=== PATIENT | male | born 1950 | race Caucasian/White ===

== ENCOUNTER 2017-08-11 17:44 | Emergency (ER) | payer OTHER ==
[2017-08-11 17:55] VITALS: BP 129/82; PULSE 68; RESP 16; TEMP 98.2; O2SAT 93
[2017-08-11] MEDS ORDERED: AZITHROMYCIN 250 MG TAB PO ONE (18:14)
--- NOTE | 2017-08-11 18:16 | EDPHY ---
H & P Time Seen by Provider: 08/11/17 17:59 HPI/ROS: This patient has cough associated with sinus pressure for over a week. He describes a feeling of chest congestion associated with this a cough occasionally productive of sputum. Patient also describes a feeling of slight wheezing in his chest at times associated with the symptoms. He notes no exacerbating factors for his symptoms. He came in by private vehicle for evaluation. ROS: No high fevers or chills. No fatigue. HEENT: Mild sinus pressure. No ear pain. No sore throat. Pulmonary: No pleuritic pain. No hemoptysis. Cardiovascular: No chest pain. No lightheadedness. No lower extremity swelling or calf pain. GI: No nausea vomiting or abdominal pain Integumentary: No rash Neuro: No headache or other complaints 10 point ROS is otherwise negative. Past Medical/Surgical History: Otherwise healthy Smoking Status: Never smoked Physical Exam: Physical Exam Vital signs are normal except for O2 sat of 93% room air. General: No acute distress HEENT: Nose: Clear discharge bilaterally. No sinus tenderness to percussion. Ears: External canals and tympanic membranes are clear with no erythema or abnormal findings bilaterally. Oropharynx: No erythema or exudates. No dysphonia. No drooling or stridor. Eyes: Pupils equal and react to light. Extraocular motions are intact. Neck: Supple with no meningismus. No lymphadenopathy Lungs: Faint wheeze bilaterally. No rales or rhonchi. Cardiac: Regular rate and rhythm with no murmur gallop or rub no JVD. No peripheral edema. Skin: No rash or pallor. Neuro: Alert with no focal deficits noted. Initial differential diagnosis: URI with cough, acute bronchitis, doubt pneumonia Constitutional: Initial Vital Signs Temperature (C) 36.8 C 08/11/17 17:52 Heart Rate 68 08/11/17 17:52 Respiratory Rate 16 08/11/17 17:52 Blood Pressure 129/82 H 08/11/17 17:52 O2 Sat (%) 93 08/11/17 17:52 O2 Delivery Mode Room Air Allergies/Adverse Reactions: No Known Allergies Allergy (Unverified 08/11/17 17:55) Home Medications: Medication Instructions Recorded Albuterol Hfa Anes Only [Proair 2 puffs IH Q4 PRN #1 mdi 08/11/17 Hfa Icu (*)] Aspirin 08/11/17 Azithromycin [Zithromax] 250 mg PO DAILY #4 tab 08/11/17 Glucosamine 08/11/17 MDM/Departure - MDM Medications Given: Discontinued Medications Azithromycin (Zithromax) 500 mg PO EDNOW ONE PRN Reason: Protocol Stop: 08/11/17 18:15 Last Admin: 08/11/17 18:24 Dose: 500 mg ED Course/Re-evaluation: Discussion: Patient presents with findings consistent with bronchitis with prior history of this. He is treated with 1st dose of Zithromax while here. I counseled regarding bronchitis. Not find clinical evidence to suggest lower respiratory infection, primary cardiac disease or other concerning findings. Patient will be treated with albuterol and Zithromax. He is comfortable with this plan. Answered all his questions prior to discharge home. He understands need to return emergency department should he develop any worsening despite treatment plan. - Depart Disposition: Home, Routine, Self-Care Clinical Impression: Acute bronchitis Qualifiers: Bronchitis organism: unspecified organism Qualified Code(s): J20.9 - Acute bronchitis, unspecified Condition: Good Instructions: Acute Bronchitis (ED) Additional Instructions: Diagnosis: Acute bronchitis Plan: Humidifier Albuterol and inhaler with spacer for cough, wheeze or shortness of breath Zithromax antibiotic Guaifenesin [id number] mucolytic Symptoms should gradually improve over the next 3-7 days. Follow up with primary care physician for any ongoing symptoms Return to the emergency department for any significant worsening despite the treatment plan Prescriptions: Albuterol Hfa Anes Only [Proair Hfa Icu (*)] 2 puffs IH Q4 PRN #1 mdi PRN Reason: Wheezing Azithromycin [Zithromax] 250 mg PO DAILY #4 tab Referrals: FATIMAH BROOKE [Primary Care Provider] - As per Instructions
== END 2017-08-11 18:31 | disposition home or self-care (01) ==
LOC: CED 17:44
DX: J20.9 Acute bronchitis, unspecified (principal); Z79.82 Long term (current) use of aspirin